=== PATIENT | female | born 1955 | race Caucasian/White ===

== ENCOUNTER 2021-09-04 11:17 | Emergency (ER) | payer MEDICARE ==
[2021-09-04 11:37] LABS: BILIRUBIN,URINE NEGATIVE (NEGATIVE); GLUCOSE, URINE (UA) NEGATIVE (NEGATIVE); KETONES,URINE (UA) >=80 mg/dL (NEGATIVE); LEUKOCYTE ESTERASE, URINE NEGATIVE (NEGATIVE); NITRITE,URINE NEGATIVE (NEGATIVE); OCCULT BLOOD,URINE LARGE (NEGATIVE); PH,URINE 5.5 PH (5.0-7.5); PROTEIN,URINE NEGATIVE (NEGATIVE); UROBILINOGEN,URINE 0.2 (NORMAL) E.U./dL (NORMAL)
[2021-09-04 11:39] LABS: CLARITY,URINE CLEAR (CLEAR)
[2021-09-04 11:48] LABS: BACTERIA,URINE Few /HPF (None Seen); SQUAMOUS EPITHELIAL CELL,UR NONE SEEN (<= Few); WBC,URINE 0-3 /HPF (0-5)
--- NOTE | 2021-09-04 11:56 | ED Physician Documentation ---
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 No: Fever, Diarrhea, Constipation, Dysuria Similar symptoms before: Has not had sx before Recently seen: Not recently seen Review of Systems Constitutional: denies: Fever, Chills Nose: denies: Rhinorrhea / runny nose, Congestion Throat: denies: Sore throat Respiratory: denies: Cough GI: reports: Abdominal Pain, Nausea. denies: Constipation, Diarrhea : denies: Dysuria, Discharge Skin: denies: Rash PD PAST MEDICAL HISTORY - Past Medical History Cardiovascular: None Respiratory: None Endocrine/Autoimmune: HyPOthyroidism GI: None - Present Medications Home Medications: Ambulatory Orders Medication Instructions Recorded Confirmed HYDROcod/ACETAM 5/325 [[place] 5/325] 1 ea PO Q6H PRN #15 tablet 09/04/21 HYDROcod/ACETAM 5/325 [[place] 5/325] 1 tablet PO TID PRN 09/04/21 09/04/21 Levothyroxine Sodium [Synthroid] 25 mcg PO DAILY 09/04/21 09/04/21 Metformin HCl [Metformin ER 1,000 mg PO DAILY 09/04/21 09/04/21 Osmotic] Ondansetron Odt [Zofran] 4 mg TL Q6H PRN #10 tablet 09/04/21 Tamsulosin [Flomax] 0.4 mg PO DAILY #5 cap 09/04/21 Thyroid,Pork [Sod Thyroid] 90 mg PO DAILY 09/04/21 09/04/21 - Allergies Allergies/Adverse Reactions: Allergies Allergy/AdvReac Type Severity Reaction Status Date / Time No Known Drug Allergies Allergy Verified 09/04/21 11:27 PD ED PE NORMAL - Vitals Vital signs reviewed: Yes - General General: Alert and oriented X 3, Well developed/nourished, Other (appears in considerable pain left flank/abd. ) - Neck Neck: Supple, no meningeal sign, No adenopathy - Cardiac Cardiac: RRR, No murmur - Respiratory Respiratory: Clear bilaterally - Abdomen Abdomen: Normal bowel sounds, Soft, Non distended, No organomegaly, Other (mildly tender left sided mid abd. No rebound nor percussion tender. ) - Derm Derm: Normal color, Warm and dry, No rash - Extremities Extremities: No edema, No calf tenderness / cord, Other (normal pulses in feet.) - Neuro Neuro: Alert and oriented X 3, No motor deficit, Normal speech Results - Vitals Vitals: Vital Signs - 24 hr 09/04/21 09/04/21 09/04/21 11:23 12:21 13:28 Temperature 36.6 C Heart Rate 81 70 68 Respiratory 16 18 16 Rate Blood Pressure 165/78 H 171/123 H 118/78 O2 Saturation 98 98 97 09/04/21 14:33 Temperature 36.7 C Heart Rate 76 Respiratory 16 Rate Blood Pressure 125/82 H O2 Saturation 99 Oxygen O2 Source Room air - Labs Labs: Laboratory Tests 09/04/21 09/04/21 09/04/21 11:22 11:55 11:55 WBC 4.4 L RBC 4.79 Hgb 14.8 Hct 45.6 MCV 95.2 MCH 30.9 MCHC 32.5 RDW 12.1 Plt Count 185 MPV 9.2 Neut # (Auto) 3.5 Lymph # (Auto) 0.5 L [place] # (Auto) 0.3 Eos # (Auto) 0.1 Baso # (Auto) 0.0 Absolute Nucleated RBC 0.00 Nucleated RBC % 0.0 Sodium 136 Potassium 3.3 L Chloride 98 L Carbon Dioxide 23 Anion Gap 15.0 H BUN 12 Creatinine 1.0 Estimated GFR (MDRD) 55 L Glucose 153 H Calcium 9.1 Total Bilirubin 0.5 AST 24 ALT 24 Alkaline Phosphatase 80 Total Protein 7.1 Albumin 4.2 Globulin 2.9 Albumin/Globulin Ratio 1.4 Lipase 26 Urine Color YELLOW Urine Clarity CLEAR Urine pH 5.5 Ur Specific [place] >=1.030 H Urine Protein NEGATIVE Urine Glucose (UA) NEGATIVE Urine Ketones >=80 H Urine Occult Blood LARGE H Urine Nitrite NEGATIVE Urine Bilirubin NEGATIVE Urine Urobilinogen 0.2 (NORMAL) Ur Leukocyte Esterase NEGATIVE Urine RBC 6-10 H Urine WBC 0-3 Ur Squamous Epith Cells NONE SEEN Urine Bacteria Few Ur Microscopic Review INDICATED Urine Culture Comments NOT INDICATED - Rads (name of study) abd/pelvis CT Radiology: Prelim report reviewed (left hydroureter/nephrosis with likely small stone near bladder, 3 mm. Artifact from hip replacement. ), See rad report PD MEDICAL DECISION MAKING - ED course Complexity details: reviewed results (left hydroureter and nephrosis with distal ureteral stone 3 mm. ), re-evaluated patient (much improved with IV meds. She declines more meds at this time. ), considered differential (abrupt left flank to abd pain with nausea. Seems likely kidney stone. No history of stones. NO prior aortic problems, but consider this as well. Less likely diverticular. ), d/w patient Departure - Departure Disposition: 01 Home, Self Care Clinical Impression: Left sided abdominal pain, Ureterolithiasis Condition: Stable Record reviewed to determine appropriate education?: Yes Instructions: ED Stone Renal W Colic Prescriptions: Tamsulosin [Flomax] 0.4 mg PO DAILY #5 cap HYDROcod/ACETAM 5/325 [[place] 5/325] 1 ea PO Q6H PRN #15 tablet PRN Reason: Pain Ondansetron Odt [Zofran] 4 mg TL Q6H PRN #10 tablet PRN Reason: Nausea / Vomiting Comments: The scan does show swelling of the ureter and kidney on the left side and what appears to be a small stone at the end of the ureter near the bladder. Your pain therefore seems to be from passing a kidney stone. The size of this should allow passage of it completely in the next several days or so. Use some anti-inflammatory such as ibuprofen 3 times a day with food. To that add ondansetron if needed for nausea. Tamsulosin to reduce spasming at the ureter. Add hydrocodone 1 to 2 tablets every 6 hours if needed for worse pain. Follow-up with your primary if not improved over the next several days and return to the ER sooner if worse. I transmitted your prescriptions to [email or web address] in [place]. I am prescribing a short course of narcotic pain medication for you. These are potentially dangerous and addictive medications that should be used carefully. These medications may constipate you. Take an [id number] stool softener such as docusate twice daily with plenty of water while taking these medications. If you go 24 hours without a bowel movement, take [id number] MiraLAX, per package instructions. Do not drink or drive while taking these medications. If you received narcotic or sedating medications while in the emergency department do not drive for 24 hours. Store this medication in a safe, secure place and out of reach of children. It is a violation of federal law to give or sell this medication to another person or to use in a manner other than prescribed. The ED will not refill narcotic prescriptions, including prescriptions lost or stolen. You can dispose of unwanted medications at the [facility]'s office or at several pharmacies such as [facility]. Discharge Date/Time: 09/04/21 14:35
[2021-09-04 12:03] LABS: BASOPHILS % (AUTO) 0.5 %; EOSINOPHILS # (AUTO) 0.1 10^3/uL (0.0-0.7); EOSINOPHILS % (AUTO) 2.3 %; HCT - HEMATOCRIT 45.6 % (37.0-47.0); HGB - HEMOGLOBIN 14.8 g/dL (12.0-16.0); LYMPHOCYTES # (AUTO) 0.5 10^3/uL (1.5-3.5); LYMPHOCYTES % (AUTO) 11.3 %; MEAN CORPUSCULAR HEMOGLOBIN 30.9 pg (27.0-31.0); MEAN CORPUSCULAR HGB CONC 32.5 g/dL (32.0-36.0); MEAN CORPUSCULAR VOLUME 95.2 fL (81.0-99.0); MEAN PLATELET VOLUME 9.2 fL (7.9-10.8); MONOCYTES # (AUTO) 0.3 10^3/uL (0.0-1.0); MONOCYTES % (AUTO) 7.7 %; NEUTROPHILS # (AUTO) 3.5 10^3/uL (1.5-6.6); PLT - PLATELET COUNT 185 10^3/uL (130-450); RED BLOOD COUNT 4.79 10^6/uL (4.20-5.40); RED CELL DISTRIBUTION WIDTH 12.1 % (12.0-15.0); WHITE BLOOD COUNT 4.4 x10^3/uL (4.8-10.8)
[2021-09-04] MEDS ORDERED: ONDANSETRON 4 MG/2 ML VIAL IVP STA (12:08)
[2021-09-04] MEDS ORDERED: SODIUM CHLORIDE 0.9% 1,000 ML IV STA (12:08)
[2021-09-04] MEDS ORDERED: HYDROmorphone 1 MG/ML CARPUJECT IVP STA (12:08)
[2021-09-04] MEDS ORDERED: KETOROLAC 30 MG/ML VIAL IVP STA (12:08)
[2021-09-04 12:16] LABS: ALBUMIN 4.2 g/dL (3.2-5.5); ALBUMIN/GLOBULIN RATIO 1.4 (1.0-2.2); BILIRUBIN,TOTAL 0.5 mg/dL (0.2-1.0); CALCIUM 9.1 mg/dL (8.5-10.3); POTASSIUM 3.3 mmol/L (3.5-5.0); TOTAL PROTEIN 7.1 g/dL (6.7-8.2)
[2021-09-04] MEDS ORDERED: IOVERSOL 320 100 ML VIAL IVP ONE ×2 (12:20→14:39)
--- NOTE | 2021-09-04 13:46 | CT Report ---
PROCEDURE: CT abdomen and pelvis with contrast INDICATIONS: left abd/flank pain CONTRAST: IV CONTRAST: Optiray 320 m: 100 PO CONTRAST: *NO PO CONTRAST TECHNIQUE: After the administration of contrast, 5 mm thick sections acquired from the diaphragms to the sym physis. 5 mm thick coronal and sagittal reformats were acquired. For radiation dose reduction, the following was used: automated exposure control, adjustment of mA and/or kV according to patient size . COMPARISON: None. FINDINGS: Lower thorax: The lung bases are clear. Heart size normal. No hiatal hernia. Bilateral breast prost hesis noted with dense capsular calcification, right greater than left. Liver: Liver shows diffusely decreased attenuation without focal mass lesion. Several calcified granu freddie noted. Biliary system: No calcified cholelithiasis or pericholecystic inflammation. No evidence of bile du ct dilatation. Pancreas: Unremarkable without mass or inflammation evident. Spleen: Multiple splenic calcified granulomas present. Adrenals: Normal morphology and density. Reproductive system: Unremarkable as visualized. Urinary system: There is moderate left hydronephrosis and hydroureter. The distal ureters obscured by streak artifact arising from left hip prosthesis. Small amount of perinephric fluid noted anteriorly as well. Several pelvic phleboliths are noted, and the bladder is not distended. No right ureteral c alculus or hydronephrosis. Gastrointestinal system: The bowel appears unremarkable with no evidence of bowel obstruction or inflammation. The stomach appears unremarkable. Appendix: No findings to suggest acute appendicitis. Normal appendix visualized. Peritoneal spaces: No mesenteric or retroperitoneal adenopathy. No free air. No free fluid. Vasculature: The IVC, aorta and iliac vasculature are unremarkable. Atherosclerotic calcification of the abdominal aorta without evidence of aneurysm. Musculoskeletal: Normal bone mineralization. No acute fractures. Abdominal wall intact without vladimir dence of ventral or inguinal hernias. IMPRESSION: 1. Left hydronephrosis and hydroureter probably related to presumed distal calculus. The distal left ureter is obscured by streak artifact from left hip prosthesis, and there are several pelvic phleboli ths are noted as well. No evidence of pyelonephritis. 2. Hepatic and splenic calcified granulomas 3. Aortic vascular calcification without aneurysm. Reviewed by: Teto Scott MD on 09/04/2021 12:45 PM [place] Approved by: Teto Scott MD on 09/04/2021 12:45 PM [place] Station ID: [id number]
[2021-09-04] MEDS ORDERED: TAMSULOSIN 0.4 MG CAPSULE PO STA (14:09)
[2021-09-04 14:34] VITALS: BP 125/82
== END 2021-09-04 14:35 | disposition home or self-care (01) ==
LOC: ED 11:17
DX: N13.2 Hydronephrosis with renal and ureteral calculous obstruction (principal)
CPT/HCPCS: 36415; 51798; 74177; 80053; 81001; 83690; 85025; 96374; 96375; 99284; A9270; J1170; Q9967; 81003; 87086